=== PATIENT | male | born 1990 | race African-American/Black ===

== ENCOUNTER 2019-01-19 12:11 | Emergency (ER) | payer OTHER ==
[2019-01-19] MEDS ORDERED: NA CHLORIDE 0.9% 1,000 ML ONE ×2 (13:35→14:49)
[2019-01-19 13:59] LABS: Absolute Lymphocytes (CBC) 1.2 K/uL (0.7-4.9); Basophils % 1.6 % (0-1.3); Eosinophils % 1.6 % (0-4.4); Hematocrit 46.6 % (39.6-49.0); Lymphocytes % 19.7 % (15.3-44.8); MPV 9.2 fL (7.6-11.3); Monocytes % 8.3 % (3.3-12.3); RBC Red Blood Cell Count 5.68 M/uL (4.33-5.43)
[2019-01-19 14:06] LABS: Albumin 3.9 g/dL (3.4-5.0); Bilirubin Total 0.4 mg/dL (0.2-1.0); Potassium 4.2 mmol/L (3.5-5.1); Protein, Total 8.4 g/dL (6.4-8.2)
[2019-01-19 14:57] LABS: Urine Blood NEGATIVE (NEG); Urine Glucose NEGATIVE (NEG); Urine Protein NEGATIVE (NEG); Urine Specific Gravity 1.015 (1.005-1.030)
--- NOTE | 2019-01-19 15:43 | ER ---
Nurse's Notes [facility] [place] Name: Satish Player Age: 28 yrs Sex: Male : 1990 Arrival Date: 01/19/2019 Time: 12:15 Bed 23 Private MD: None, None Diagnosis: Dehydration Presentation: 01/19 12:28 Presenting complaint: Patient states: fatigue for months, just got off a shut down at work, also has lower back pain, feels like he's dehydrated, denies vomiting, +diarrhea last night X 4, denies fever, denies urinary symptoms. Transition of care: patient was not received from another setting of care. Onset of symptoms was November 2018. Risk Assessment: Do you want to hurt yourself or someone else? Patient reports no desire to harm self or others. Initial Sepsis Screen: Does the patient meet any 2 criteria? No. Patient's initial sepsis screen is negative. Does the patient have a suspected source of infection? No. Patient's initial sepsis screen is negative. Care prior to arrival: None. 12:28 Method Of Arrival: Ambulatory iw 12:28 Acuity: NORA 4 iw 13:24 Acuity: NORA 3 iw Historical: - Allergies: 12:31 No Known Allergies; iw - Home Meds: 12:31 None [Active]; iw - PMHx: 12:31 None; iw - PSHx: 12:31 None; iw - Immunization history:: Adult Immunizations. - Social history:: Smoking status: Patient/guardian denies using tobacco. - Ebola Screening: : Patient negative for fever greater than or equal to 101.5 degrees Fahrenheit, and additional compatible Ebola Virus Disease symptoms Patient denies exposure to infectious person Patient denies travel to an Ebola-affected area in the 21 days before illness onset No symptoms or risks identified at this time. Screenin:12 Abuse screen: Denies threats or abuse. Denies injuries from another. Nutritional mg2 screening: No deficits noted. Tuberculosis screening: No symptoms or risk factors identified. 13:45 Fall Risk IV access (20 points). mg2 Assessment: 13:44 General: Appears in no apparent distress. comfortable, Behavior is calm, cooperative. mg2 Pain: Denies pain. Neuro: Level of Consciousness is awake, alert, obeys commands, Oriented to person, place, time, situation. Cardiovascular: Capillary refill < 3 seconds Patient's skin is warm and dry. Respiratory: Airway is patent Respiratory effort is even, unlabored, Respiratory pattern is regular, symmetrical. GI: No signs and/or symptoms were reported involving the gastrointestinal system. : No signs and/or symptoms were reported regarding the genitourinary system. EENT: No signs and/or symptoms were reported regarding the EENT system. Derm: Skin is intact, is healthy with good turgor, Skin is pink, warm \T\ dry. normal. Musculoskeletal: Circulation, motion, and sensation intact. Capillary refill < 3 seconds, Reports weakness in whole body. Vital Signs: 12:30 BP 111 / 70; Pulse 83; Resp 16; Temp 97.9; Pulse Ox 98% on R/A; Weight 122.47 kg; iw Height 5 ft. 11 in. (180.34 cm); Pain 0/10; 14:37 BP 126 / 86; Pulse 73; Resp 18; Pulse Ox 98% ; mg2 15:58 BP 122 / 78; Pulse 72; Resp 18; Temp 98; Pulse Ox 100% on R/A; Pain 0/10; mg2 12:30 Body Mass Index 37.66 (122.47 kg, 180.34 cm) iw ED Course: 12:15 Patient arrived in ED. dp 12:16 None, None is Private Physician. dp 12:30 Triage completed. iw 12:30 Arm band placed on. iw 13:00 Ronni Velez PA is PHCP. [facility] 13:00 Blayne Pritchett MD is Attending Physician. [facility] 13:06 Nigel Lopez RN is Primary Nurse. mg2 13:31 Missed attempt(s): 20 gauge in right antecubital area. lt1 13:31 Initial lab(s) drawn, sent to lab. Inserted saline lock: 20 gauge in left antecubital lt1 area, using aseptic technique. 13:46 Patient has correct armband on for positive identification. Pulse ox on. NIBP on. Door mg2 closed. 13:46 No provider procedures requiring assistance completed. mg2 15:58 IV discontinued, intact, bleeding controlled, No redness/swelling at site. Pressure mg2 dressing applied. Administered Medications: 13:40 Drug: NS 0.9% 1000 ml Route: IV; Rate: 1 bolus; Site: left antecubital; mg2 15:57 Follow up: Response: No adverse reaction; IV Status: Completed infusion; IV Intake: mg2 1000ml 14:32 Drug: NS 0.9% 1000 ml Route: IV; Rate: 1 bolus; Site: left antecubital; mg2 15:57 Follow up: Response: No adverse reaction; IV Status: Completed infusion; IV Intake: mg2 1000ml Intake: 15:57 IV: 1000ml; Total: 1000ml. mg2 15:57 IV: 1000ml; Total: 2000ml. mg2 Outcome: 15:42 Discharge ordered by . remy 15:58 Discharged to home ambulatory. mg2 15:58 Condition: stable 15:58 Discharge instructions given to patient, Instructed on discharge instructions, follow up and referral plans. Demonstrated understanding of instructions, follow-up care. 15:58 Patient left the ED. mg2 Signatures: Ronni Velez PA PA jmm Williams, Irene, RN RN iw Nigel Lopez RN RN mg2 Radha Rowland lt1 Je Luz
--- NOTE | 2019-01-19 15:43 | EDPHYS ---
Physician Documentation [facility] [place] Name: Satish Player Age: 28 yrs Sex: Male : 1990 Arrival Date: 01/19/2019 Time: 12:15 Bed 23 Private MD: None, None ED Physician Blayne Pritchett HPI: 01/19 13:16 This 28 yrs old Black Male presents to ER via Ambulatory with complaints of General [facility] Weakness. 13:16 This is a 28 year old male with no known chronic medical conditions that presents to [facility] the ED with complaints of fatigue, weakness. 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 Patient is concerned he may be dehydrated.. Onset: The symptoms/episode began/occurred gradually, 1 week(s) ago. The patient has not experienced similar symptoms in the past. Historical: - Allergies: 12:31 No Known Allergies; iw - Home Meds: 12:31 None [Active]; iw - PMHx: 12:31 None; iw - PSHx: 12:31 None; iw - Immunization history:: Adult Immunizations. - Social history:: Smoking status: Patient/guardian denies using tobacco. - Ebola Screening: : Patient negative for fever greater than or equal to 101.5 degrees Fahrenheit, and additional compatible Ebola Virus Disease symptoms Patient denies exposure to infectious person Patient denies travel to an Ebola-affected area in the 21 days before illness onset No symptoms or risks identified at this time. ROS: 13:16 Cardiovascular: Negative for chest pain, palpitations, and edema, Respiratory: Negative [facility] for shortness of breath, cough, wheezing, and pleuritic chest pain, Abdomen/GI: Negative for abdominal pain, nausea, vomiting, diarrhea, and constipation. 13:16 Constitutional: Positive for fatigue. 13:16 MS/extremity: Positive for pain. 13:16 Neuro: Positive for weakness. 13:16 All other systems are negative. Exam: 13:16 Constitutional: This is a well developed, well nourished patient who is awake, alert, jmm and in no acute distress. Head/Face: atraumatic. Eyes: EOMI, no conjunctival erythema appreciated ENT: Moist Mucus Membranes Neck: Trachea midline, Supple Chest/axilla: Normal chest wall appearance and motion. Cardiovascular: Regular rate and rhythm. No edema appreciated Respiratory: Normal respirations, no respiratory distress appreciated Abdomen/GI: Non distended, soft Back: Normal ROM Skin: General appearance color normal MS/ Extremity: Moves all extremities, no obvious deformities appreciated, no edema noted to the lower extremities Neuro: Awake and alert, normal gait Psych: Behavior is normal, Mood is normal, Patient is cooperative and pleasant Vital Signs: 12:30 BP 111 / 70; Pulse 83; Resp 16; Temp 97.9; Pulse Ox 98% on R/A; Weight 122.47 kg; iw Height 5 ft. 11 in. (180.34 cm); Pain 0/10; 14:37 BP 126 / 86; Pulse 73; Resp 18; Pulse Ox 98% ; mg2 15:58 BP 122 / 78; Pulse 72; Resp 18; Temp 98; Pulse Ox 100% on R/A; Pain 0/10; mg2 12:30 Body Mass Index 37.66 (122.47 kg, 180.34 cm) iw MDM: 13:16 Patient medically screened. [facility] 15:42 Data reviewed: vital signs, nurses notes. Counseling: I had a detailed discussion with [facility] the patient and/or guardian regarding: the historical points, exam findings, and any diagnostic results supporting the discharge/admit diagnosis, lab results, the need for outpatient follow up, to return to the emergency department if symptoms worsen or persist or if there are any questions or concerns that arise at home. 15:42 ED course: Patient states feeling much better in the ED. Patient is alert and non toxic [facility] in appearance. Labs appear consistent with mild dehydration. patient given 2 liters ns in the ED and advised to increased fluid intake. patient was otherwise given strict return precautions. patient understood and agrees with the plan of care. . 01/19 13:16 Order name: CBC with Diff; Complete Time: 14:[address] [facility] 01/19 13:16 Order name: CMP; Complete Time: 14:[address] [facility] 01/19 13:16 Order name: CPK; Complete Time: 14:[address] [facility] 01/19 14:38 Order name: Urine Dipstick--Ancillary (enter results); Complete Time: 15:04 01/19 13:16 Order name: Urine Dipstick-Ancillary (obtain specimen); Complete Time: 14:[address] [facility] Administered Medications: 13:40 Drug: NS 0.9% 1000 ml Route: IV; Rate: 1 bolus; Site: left antecubital; mg2 15:57 Follow up: Response: No adverse reaction; IV Status: Completed infusion; IV Intake: mg2 1000ml 14:32 Drug: NS 0.9% 1000 ml Route: IV; Rate: 1 bolus; Site: left antecubital; mg2 15:57 Follow up: Response: No adverse reaction; IV Status: Completed infusion; IV Intake: mg2 1000ml Disposition: 01/19/19 15:42 Discharged to Home. Impression: Dehydration. - Condition is Stable. - Discharge Instructions: Dehydration, Adult. - Medication Reconciliation Form, Thank You Letter, Antibiotic Education, Prescription Opioid Use form. - Follow up: Private Physician; When: 2 - 3 days; Reason: Recheck today's complaints, Continuance of care, Re-evaluation by your physician. Addendum: 01/21/2019 07:36 Co-signature as Attending Physician, Blayne Pritchett MD. g s Signatures: Dispatcher [employer] EDMS Ronni Velez PA PA jmm Williams, Irene, KATINA RN Blayne Pritchett MD MD Nigel Lopez RN RN mg2 Corrections: (The following items were deleted from the chart) 01/19 15:58 15:42 01/19/2019 15:42 Discharged to Home. Impression: Dehydration. Condition is mg2 Stable. Forms are Medication Reconciliation Form, Thank You Letter, Antibiotic Education, Prescription Opioid Use. Follow up: Private Physician; When: 2 - 3 days; Reason: Recheck today's complaints, Continuance of care, Re-evaluation by your physician. remy
[2019-01-19 16:19] VITALS: BP 122/78; TEMP 98; O2SAT 100
== END 2019-01-19 15:58 | disposition home or self-care (01) ==
LOC: ER 12:11
DX: E86.0 Dehydration (principal)
CPT/HCPCS: 36415; 80053; 81003; 82550; 85025; 96360; 96361; 99284; J7030

== ENCOUNTER 2023-10-28 14:21 | Emergency (ER) | payer OTHER, SELFPAY ==
[2023-10-28] MEDS ORDERED: ONDANSETRON 4 MG/2 ML VIAL ONE (14:53)
[2023-10-28] MEDS ORDERED: KETOROLAC 30 MG/ML INJ ONE (14:53)
[2023-10-28] MEDS ORDERED: NA CHLORIDE 0.9% 1,000 ML ONE ×2 (14:54→15:46)
[2023-10-28 14:55] LABS: Absolute Basophils 0.1 K/uL (0-0.5); Absolute Lymphocytes (CBC) 2.2 K/uL (0.7-4.9); Basophils % 0.6 % (0-1.3); Eosinophils % 0.4 % (0-4.4); Hematocrit 47.1 % (39.6-49.0); Hemoglobin 15.1 g/dL (13.6-17.9); Lymphocytes % 17.5 % (15.3-44.8); MCH 26.5 pg (27.0-35.0); MCHC 32.1 g/dL (32.0-36.0); MCV 82.6 fL (80-100); MPV 8.7 fL (7.6-11.3); Monocytes % 8.1 % (3.3-12.3); Neutrophils % 73.4 % (41.7-73.7); Platelets 243 thou/uL (152-406); RBC Red Blood Cell Count 5.71 M/uL (4.33-5.43); Red Cell Distribution Width 14.5 % (12.1-15.2)
[2023-10-28 15:13] LABS: Albumin 3.9 g/dL (3.4-5.0); Albumin/Globulin Ratio 0.8 (1.1-1.8); Anion Gap 10.6 mEq/L (5.0-15.0); Bilirubin Total 0.5 mg/dL (0.2-1.0); Globulin 4.8 g/dL (2.3-3.5); Magnesium 2.2 mg/dL (1.6-2.4); Potassium 3.6 mEq/L (3.5-5.1); Protein, Total 8.7 g/dL (6.4-8.2)
[2023-10-28 15:15] LABS: SARS-CoV-2 Antigen CONTROL BLUE LINE VIS/BG OK; SARS-CoV-2 Antigen Rapid Res Negative (Negative)
[2023-10-28] MEDS ORDERED: ACETAMINOPHEN 500 MG TAB ONE (15:46)
--- NOTE | 2023-10-28 16:32 | EDPHYS ---
Physician Documentation [facility] [place] Name: Satish Player Age: 33 yrs Sex: Male : 1990 Arrival Date: 10/28/2023 Time: 14:21 Bed DX2 Private MD: ED Physician Farrukh Baeza Historical: - Allergies: 10/27 14:41 No Known Allergies; iw - Home Meds: 14:41 None [Active]; iw - PMHx: 14:41 None; iw - PSHx: 14:41 None; iw - Immunization history:: Adult Immunizations not up to date. - Infectious Disease History:: Denies. - Social history:: Smoking status: Reported history of juuling and/or vaping. Vital Signs: 14:38 BP 129 / 105; Pulse 98; Resp 18; Temp 98.1; Pulse Ox 97% ; Weight 116.12 kg; Height 5 iw ft. 11 in. ; 15:52 Resp 16; Pain 4/10; ll1 16:47 BP 131 / 75; Pulse 68; Resp 16; Pulse Ox 97% on R/A; Pain 0/10; ll1 14:38 Body Mass Index 35.70 (116.12 kg, 180.34 cm) iw 15:52 Pain Scale: Adult ll1 16:47 Pain Scale: Adult ll1 MDM: 14:42 Patient medically screened. rt 10/27 14:42 Order name: SARS RAPID; Complete Time: 15:41 rt 10/27 14:42 Order name: Influenza Screen (a \T\ B); Complete Time: 15:41 rt 10/27 14:42 Order name: CBC with Diff; Complete Time: 15:41 rt 10/27 14:42 Order name: CMP; Complete Time: 15:41 rt 10/27 14:42 Order name: Magnesium; Complete Time: 15:41 rt 10/27 14:42 Order name: CPK; Complete Time: 15:41 rt Administered Medications: 15:02 Drug: NS 0.9% IV 1000 ml IV at 1 bolus Per protocol; 1000 mL bolus Route: IV; Rate: 1 cp4 bolus; Site: left antecubital; 15:51 Follow up: Response: No adverse reaction; IV Status: Completed infusion; IV Intake: ll1 1000ml 15:02 Drug: Ondansetron IVP 4 mg IVP once; over 2 minutes Route: IVP; Site: left antecubital; cp4 15:51 Follow up: Response: No adverse reaction ll1 15:03 Drug: Ketorolac IVP 15 mg IVP once Route: IVP; Site: left antecubital; cp4 15:51 Follow up: Response: No adverse reaction; Pain is decreased; RASS: Alert and Calm (0) ll1 15:52 Drug: Acetaminophen PO 1000 mg PO once {Note: pain 4/10.} Route: PO; ll1 16:47 Follow up: Response: No adverse reaction; Pain is decreased ll1 15:52 Drug: NS 0.9% IV 1000 ml IV at 1 bolus Per protocol; 1000 mL bolus Route: IV; Rate: 1 ll1 bolus; Site: left antecubital; 16:47 Follow up: Response: No adverse reaction; IV Status: Completed infusion; IV Intake: ll1 1000ml Disposition Summary: 10/28/23 16:32 Discharge Ordered Notes: Location: Home rt Problem: new rt Symptoms: have improved rt Condition: Stable rt Diagnosis - Influenza B rt Followup: rt - With: Private Physician - When: 2 - 3 days - Reason: Discharge Instructions: - Discharge Summary Sheet rt - Influenza, Adult rt Forms: - Medication Reconciliation Form rt - Antibiotic Education rt - Prescription Opioid Use rt - Patient Portal Instructions rt - Leadership Thank You Letter rt Prescriptions: - Zofran 4 mg Oral tablet - take 1 tablet ORAL route every 6 hours As needed as needed for nausea; 20 rt tablet; Refills: 0, Product Selection Permitted Signatures: Dispatcher [employer] Lavonne Ballard RN RN Rosie Harrison RN RN ll1 Farrukh Baeza MD MD rt Potter, Christina cp4
--- NOTE | 2023-10-28 16:32 | ER ---
Nurse's Notes [facility] [place] Name: Satish Player Age: 33 yrs Sex: Male : 1990 Arrival Date: 10/28/2023 Time: 14:21 Bed DX2 Private MD: Diagnosis: Influenza B Presentation: 10/27 14:37 Chief complaint: Patient states: cold sweats, not feeling well for a couple days , iw having n/v. Coronavirus screen: Client presents with at least one sign or symptom that may indicate coronavirus-19. Ebola Screen: Patient negative for fever greater than or equal to 101.5 degrees Fahrenheit, and additional compatible Ebola Virus Disease symptoms Patient denies exposure to infectious person. Patient denies travel to an Ebola-affected area in the 21 days before illness onset. No symptoms or risks identified at this time. Initial Sepsis Screen: Does the patient meet any 2 criteria? No. Patient's initial sepsis screen is negative. Does the patient have a suspected source of infection? No. Patient's initial sepsis screen is negative. Risk Assessment: Do you want to hurt yourself or someone else? Patient reports no desire to harm self or others. Onset of symptoms was October 26, 2023. 14:37 Method Of Arrival: Ambulatory iw 14:37 Acuity: NORA 4 iw 14:37 Acuity: NORA 3 Triage Assessment: 16:48 Headache History: Denies prior headaches. General: Appears uncomfortable. Pain: Pain ll1 began 1 day ago. Also complains of nausea, inability to work, sleeplessness. Pain: Denies pain. Historical: - Allergies: 14:41 No Known Allergies; iw - Home Meds: 14:41 None [Active]; iw - PMHx: 14:41 None; iw - PSHx: 14:41 None; iw - Immunization history:: Adult Immunizations not up to date. - Infectious Disease History:: Denies. - Social history:: Smoking status: Reported history of juuling and/or vaping. Screenin:48 [facility] ED Fall Risk Assessment (Adult) History of falling in the last 3 months, ll1 including since admission No falls in past 3 months (0 pts) Confusion or Disorientation No (0 pts) Intoxicated or Sedated No (0 pts) Impaired Gait No (0 pts) Mobility Assist Device Used No (0 pt) Altered Elimination No (0 pt) Score/Fall Risk Level 0 - 2 = Low Risk Maintained a safe environment, Hourly rounding (assess needs \T\ fall precautionary measures) done. Abuse screen: Denies threats or abuse. Nutritional screening: No deficits noted. Tuberculosis screening: No symptoms or risk factors identified. Assessment: 15:52 General: Appears uncomfortable, Behavior is calm, cooperative, appropriate for age. ll1 General: Reports fever for feeling ill for fatigue for. Pain: Complains of pain in head Pain currently is 4 out of 10 on a pain scale. Quality of pain is described as aching. Neuro: Reports headache. 15:52 GI: Reports nausea, vomiting. ll1 16:47 Reassessment: No changes from previously documented assessment. Patient and/or family ll1 updated on plan of care and expected duration. Pain level reassessed. Patient is alert, oriented x 3, equal unlabored respirations, skin warm/dry/pink. Vital Signs: 14:38 BP 129 / 105; Pulse 98; Resp 18; Temp 98.1; Pulse Ox 97% ; Weight 116.12 kg; Height 5 iw ft. 11 in. ; 15:52 Resp 16; Pain 4/10; ll1 16:47 BP 131 / 75; Pulse 68; Resp 16; Pulse Ox 97% on R/A; Pain 0/10; ll1 14:38 Body Mass Index 35.70 (116.12 kg, 180.34 cm) iw 15:52 Pain Scale: Adult ll1 16:47 Pain Scale: Adult ll1 ED Course: 14:21 Patient arrived in ED. rg4 14:26 Farrukh Baeza MD is Attending Physician. rt 14:38 Triage completed. iw 14:41 Arm band placed on. iw 14:50 CPK Sent. bc6 14:50 Magnesium Sent. bc6 14:50 CMP Sent. bc6 14:50 CBC with Diff Sent. bc6 14:50 Influenza Screen (a \T\ B) Sent. bc6 14:50 SARS RAPID Sent. bc6 14:51 Initial lab(s) drawn, by ri, sent to lab. COVID swab sent to lab. Flu and/or RSV swab bc6 sent to lab. Inserted saline lock: 20 gauge in left antecubital area, using aseptic technique. Blood collected. 15:02 Molly Kaiser is Primary Nurse. cp4 16:48 No provider procedures requiring assistance completed. IV discontinued, intact, ll1 bleeding controlled, No redness/swelling at site. Pressure dressing applied. 16:49 Patient has correct armband on for positive identification. Bed in low position. ll1 Provided Education on: n/a. Administered Medications: 15:02 Drug: NS 0.9% IV 1000 ml IV at 1 bolus Per protocol; 1000 mL bolus Route: IV; Rate: 1 cp4 bolus; Site: left antecubital; 15:51 Follow up: Response: No adverse reaction; IV Status: Completed infusion; IV Intake: ll1 1000ml 15:02 Drug: Ondansetron IVP 4 mg IVP once; over 2 minutes Route: IVP; Site: left antecubital; cp4 15:51 Follow up: Response: No adverse reaction 1 15:03 Drug: Ketorolac IVP 15 mg IVP once Route: IVP; Site: left antecubital; cp4 15:51 Follow up: Response: No adverse reaction; Pain is decreased; RASS: Alert and Calm (0) 1 15:52 Drug: Acetaminophen PO 1000 mg PO once {Note: pain 4/10.} Route: PO; ll1 16:47 Follow up: Response: No adverse reaction; Pain is decreased 1 15:52 Drug: NS 0.9% IV 1000 ml IV at 1 bolus Per protocol; 1000 mL bolus Route: IV; Rate: 1 ll1 bolus; Site: left antecubital; 16:47 Follow up: Response: No adverse reaction; IV Status: Completed infusion; IV Intake: ll1 1000ml Medication: 16:49 VIS not applicable for this client. 1 Intake: 15:51 IV: 1000ml; Total: 1000ml. ll1 16:47 IV: 1000ml; Total: 2000ml. 1 Outcome: 16:32 Discharge ordered by MD. rt 16:48 Discharged to home ambulatory, 1 16:48 Condition: stable 16:48 Discharge instructions given to patient, Instructed on discharge instructions, follow up and referral plans. medication usage, Demonstrated understanding of instructions, follow-up care, medications, Prescriptions given X 1, 16:49 Patient left the ED. 1 Signatures: Lavonne Marshall RN RN iw Garcia, Rubi 4 Rosie Harrison RN RN 1 Farrukh Baeza MD MD rt Bridgette Graham bc6 Molly Kaiser cp4 Corrections: (The following items were deleted from the chart) 15:53 15:52 Neuro: Reports headache ll1 ll1
[2023-10-28 18:07] VITALS: BP 131/75; TEMP 98.1; O2SAT 97
== END 2023-10-28 16:49 | disposition home or self-care (01) ==
LOC: ER 14:21
DX: J10.1 Influenza due to other identified influenza virus with other respiratory manifestations (principal); Z11.52 Encounter for screening for COVID-19
CPT/HCPCS: 85025; 36415; 83735; 82550; 80053; 87804 ×2; 87811; J2405; J7030 ×2

== ENCOUNTER 2025-04-22 07:36 | Emergency (ER) | payer OTHER ==
[2025-04-22] MEDS ORDERED: NA CHLORIDE 0.9% 1,000 ML ONE (08:09)
[2025-04-22] MEDS ORDERED: ONDANSETRON 4 MG/2 ML VIAL ONE (08:09)
[2025-04-22 08:38] LABS: Absolute Lymphocytes (CBC) 1.9 K/uL (0.7-4.9); Hematocrit 47.0 % (39.6-49.0); Hemoglobin 15.5 g/dL (13.6-17.9); MCH 26.6 pg (27.0-35.0); MCHC 32.9 g/dL (32.0-36.0); MCV 80.7 fL (80-100); MPV 8.9 fL (7.6-11.3); Nucleated RBC Absolute Count 0.0 (0-0); Nucleated Red Blood Cells % 0.1 % (0-0); RBC Red Blood Cell Count 5.82 M/uL (4.33-5.43); White Blood Count 11.00 thou/uL (4.3-10.9)
[2025-04-22 08:49] LABS: ALT/SGPT 42.0 U/L (16-61); AST/SGOT 19.0 U/L (15-37); Albumin 3.6 g/dL (3.4-5.0); Albumin/Globulin Ratio 0.7 (1.1-1.8); Alkaline Phosphatase 93.0 U/L (45-117); Anion Gap 9.2 mEq/L (5.0-15.0); BUN Blood Urea Nitrogen 12.0 mg/dL (7-18); Globulin 5.0 g/dL (2.3-3.5); Glucose Level 92.0 mg/dL (74-106); Potassium 3.2 mEq/L (3.5-5.1)
[2025-04-22 08:53] LABS: Influenza A Ag Negative; Influenza B Ag Negative; SARS-CoV-2 Antigen Rapid Res Negative (Negative)
[2025-04-22] MEDS ORDERED: POTASSIUM 25 MEQ EFFERV TAB ONE (09:12)
--- NOTE | 2025-04-22 09:28 | ER ---
Nurse's Notes [facility] [place] Name: Satish Player Age: 35 yrs Sex: Male : 1990 Arrival Date: 04/22/2025 Time: 07:36 Bed 7 Private MD: Diagnosis: Nausea with vomiting, unspecified;Weakness;Hypokalemia Presentation: 04/22 07:49 Chief complaint: Patient states: c/o N/V since Wednesday after "eating sisters nasty dirty kb4 rice". Coronavirus screen: At this time, unable to obtain information related to travel outside the [place] Ebola Screen: No symptoms or risks identified at this time. Initial Sepsis Screen: Does the patient meet any 2 criteria? No. Patient's initial sepsis screen is negative. Does the patient have a suspected source of infection? No. Patient's initial sepsis screen is negative. Risk Assessment: Do you want to hurt yourself or someone else? Patient reports no desire to harm self or others. Onset of symptoms was April 20, 2025. 07:49 Method Of Arrival: Ambulatory kb4 07:49 Acuity: NORA 3 kb4 Triage Assessment: 07:51 General: Appears in no apparent distress. comfortable, Behavior is calm, cooperative. kb4 Pain: Denies pain. GI: Reports nausea, vomiting, Wednesday. Historical: - Allergies: 07:51 No Known Allergies; kb4 - Immunization history:: Adult Immunizations up to date. - Infectious Disease History:: Denies. - Social history:: Smoking status: Patient reports the use of cigarette tobacco products, denies chronic smoking, but will smoke occasionally. Screenin:32 [facility] ED Fall Risk Assessment (Adult) History of falling in the last 3 months, kb4 including since admission No falls in past 3 months (0 pts) Confusion or Disorientation No (0 pts) Intoxicated or Sedated No (0 pts) Impaired Gait No (0 pts) Mobility Assist Device Used No (0 pt) Altered Elimination No (0 pt) Score/Fall Risk Level 0 - 2 = Low Risk. Abuse screen: Denies threats or abuse. Denies injuries from another. Nutritional screening: No deficits noted. Tuberculosis screening: No symptoms or risk factors identified. Assessment: 08:15 Reassessment: Patient and/or family updated on plan of care and expected duration. Pain kb4 level reassessed. Patient is alert, oriented x 3, equal unlabored respirations, skin warm/dry/pink. Neuro: Level of Consciousness is awake, alert, obeys commands, Oriented to person, place, time, situation. Cardiovascular: Patient's skin is warm and dry. Respiratory: Airway is patent Respiratory effort is even, unlabored, Respiratory pattern is regular, symmetrical. Derm: Skin is dry, Skin is pink, warm \\T\\ dry. normal. 09:00 Reassessment: Patient and/or family updated on plan of care and expected duration. Pain kb4 level reassessed. Patient is alert, oriented x 3, equal unlabored respirations, skin warm/dry/pink. 10:05 Reassessment: Patient and/or family updated on plan of care and expected duration. Pain kb4 level reassessed. Patient is alert, oriented x 3, equal unlabored respirations, skin warm/dry/pink. laying in bed, feeling better, playing on phone. GI: Abdomen is round non-distended. Vital Signs: 07:51 Temp 97.7; Weight 117.93 kg; Height 5 ft. 11 in. ; kb4 08:31 BP 151 / 109; Pulse 83; Resp 18; Pulse Ox 97% ; kb4 09:56 BP 146 / 83; Pulse 73; Resp 18; Pulse Ox 100% on R/A; kb4 07:51 Body Mass Index 36.26 (117.93 kg, 180.34 cm) kb4 ED Course: 07:40 Patient arrived in ED. cj3 07:41 Solo Briggs MD is Attending Physician. regina 07:49 Armida Woodard, RN is Primary Nurse. kb4 07:50 Inserted saline lock: 20 gauge in right antecubital area, using aseptic technique. kb4 07:51 Triage completed. kb4 07:51 Arm band placed on right wrist. kb4 08:32 Patient has correct armband on for positive identification. kb4 10:08 Provided Education on: d/c instructions . kb4 10:08 No provider procedures requiring assistance completed. kb4 10:19 IV discontinued, intact, bleeding controlled, No redness/swelling at site. Pressure kb4 dressing applied. Administered Medications: 08:28 Drug: NS 0.9% IV 1000 ml IV at 1000 ml once; to be given as a bolus over 60 minutes kb4 Route: IV; Rate: 1000 ml; Site: right antecubital; 08:28 Drug: Ondansetron IVP 8 mg IVP once; over 2 minutes Route: IVP; Site: right antecubital;kb4 10:08 Follow up: Response: No adverse reaction kb4 09:35 Drug: Potassium PO Effervescent Tablet 50 mEq PO once; dissolve in 4 ounces of water or kb4 juice Route: PO; 10:07 Follow up: Response: No adverse reaction kb4 Medication: 10:08 VIS not applicable for this client. kb4 Outcome: 09:27 Discharge ordered by . regina 10:18 Discharged to home ambulatory, kb4 10:18 Condition: good 10:18 Discharge instructions given to patient, Instructed on discharge instructions, follow up and referral plans. medication usage, Demonstrated understanding of instructions, follow-up care, medications, Prescriptions given X 2, 10:19 Patient left the ED. kb4 Signatures: Solo Briggs MD MD cha Bowen, Kayla, RN RN kb4 Talia Senior 3
--- NOTE | 2025-04-22 09:28 | EDPHYS ---
Physician Documentation [facility] [place] Name: Satish Player Age: 35 yrs Sex: Male : 1990 Arrival Date: 04/22/2025 Time: 07:36 Bed 7 Private MD: SHARRI Physician Solo Briggs HPI: 04/22 09:15 This 35 yrs old Black Male presents to ER via Ambulatory with complaints of regina Nausea/Vomiting, Chills, Flu Symptoms. 09:15 The patient presents to the emergency department with nausea, vomiting. Onset: The regina symptoms/episode began/occurred 3 day(s) ago. Possible causes: unknown, sick contacts, by family. The symptoms are aggravated by food , The symptoms are alleviated by nothing. remaining still. Associated signs and symptoms: Pertinent positives: anorexia, nausea, vomiting. Severity of symptoms: At their worst the symptoms were moderate in the emergency department the symptoms are unchanged. The patient has not experienced similar symptoms in the past. Historical: - Allergies: 07:51 No Known Allergies; kb4 - Immunization history:: Adult Immunizations up to date. - Infectious Disease History:: Denies. - Social history:: Smoking status: Patient reports the use of cigarette tobacco products, denies chronic smoking, but will smoke occasionally. ROS: 09:16 Constitutional: Negative for fever, chills, and weight loss, Eyes: Negative for injury, regina pain, redness, and discharge, ENT: Negative for injury, pain, and discharge, Neck: Negative for injury, pain, and swelling, Cardiovascular: Negative for chest pain, palpitations, and edema, Respiratory: Negative for shortness of breath, cough, wheezing, and pleuritic chest pain, Back: Negative for injury and pain, : Negative for injury, bleeding, discharge, and swelling, MS/Extremity: Negative for injury and deformity, Skin: Negative for injury, rash, and discoloration, Neuro: Negative for headache, weakness, numbness, tingling, and seizure, Psych: Negative for depression, anxiety, suicide ideation, homicidal ideation, and hallucinations, Allergy/Immunology: Negative for hives, rash, and allergies, Endocrine: Negative for neck swelling, polydipsia, polyuria, polyphagia, and marked weight changes, Hematologic/Lymphatic: Negative for swollen nodes, abnormal bleeding, and unusual bruising, 09:16 Abdomen/GI: Positive for nausea and vomiting, anorexia, Exam: 09:16 Constitutional: This is a well developed, well nourished patient who is awake, alert, regina and in no acute distress. Head/Face: Normocephalic, atraumatic. Eyes: Pupils equal round and reactive to light, extra-ocular motions intact. Lids and lashes normal. Conjunctiva and sclera are non-icteric and not injected. Cornea within normal limits. Periorbital areas with no swelling, redness, or edema. ENT: Nares patent. No nasal discharge, no septal abnormalities noted. Tympanic membranes are normal and external auditory canals are clear. Oropharynx with no redness, swelling, or masses, exudates, or evidence of obstruction, uvula midline. Mucous membranes moist. Neck: Trachea midline, no thyromegaly or masses palpated, and no cervical lymphadenopathy. Supple, full range of motion without nuchal rigidity, or vertebral point tenderness. No Meningismus. Chest/axilla: Normal chest wall appearance and motion. Nontender with no deformity. No lesions are appreciated. Cardiovascular: Regular rate and rhythm with a normal S1 and S2. No gallops, murmurs, or rubs. Normal PMI, no JVD. No pulse deficits. Respiratory: Lungs have equal breath sounds bilaterally, clear to auscultation and percussion. No rales, rhonchi or wheezes noted. No increased work of breathing, no retractions or nasal flaring. Abdomen/GI: Soft, non-tender, with normal bowel sounds. No distension or tympany. No guarding or rebound. No evidence of tenderness throughout. Back: No spinal tenderness. No costovertebral tenderness. Full range of motion. Male : Normal genitalia with no discharge or lesions. Skin: Warm, dry with normal turgor. Normal color with no rashes, no lesions, and no evidence of cellulitis. MS/ Extremity: Pulses equal, no cyanosis. Neurovascular intact. Full, normal range of motion., bilateral aka Neuro: Awake and alert, GCS 15, oriented to person, place, time, and situation. Cranial nerves II-XII grossly intact. Motor strength 5/5 in all extremities. Sensory grossly intact. Cerebellar exam normal. Normal gait. Psych: Awake, alert, with orientation to person, place and time. Behavior, mood, and affect are within normal limits. Vital Signs: 07:51 Temp 97.7; Weight 117.93 kg; Height 5 ft. 11 in. ; kb4 08:31 BP 151 / 109; Pulse 83; Resp 18; Pulse Ox 97% ; kb4 09:56 BP 146 / 83; Pulse 73; Resp 18; Pulse Ox 100% on R/A; kb4 07:51 Body Mass Index 36.26 (117.93 kg, 180.34 cm) kb4 MDM: 07:41 Medical Screening Exam initiated [facility] 09:20 Differential diagnosis: Nonspecific abd pain, gastritis, cholecystitis, pancreatitis, regina viral gastroenteritis, gastroenteritis. Data reviewed: vital signs, nurses notes, lab test result(s). Consideration of Admission/Observation Escalation of care including admission/observation considered. I considered the following discharge prescriptions or medication management in the emergency department Medications were administered in the Emergency Department. See MAR. Historians other than the Patient: pt well informed. Care significantly affected by the following chronic conditions: Obesity. 04/22 07:48 Order name: CBC with Diff; Complete Time: 09:02 [facility] 04/22 07:48 Order name: CMP; Complete Time: 09:02 [facility] 04/22 07:48 Order name: COVID-19 Ag + Flu A+B Ag; Complete Time: 09:02 [facility] 04/22 07:48 Order name: Group A Streptococcus Rapid; Complete Time: 09:02 [facility] 04/22 08:44 Order name: Throat Culture EDME 04/22 09:04 Order name: PO challenge; Complete Time: 09:06 [facility] Administered Medications: 08:28 Drug: NS 0.9% IV 1000 ml IV at 1000 ml once; to be given as a bolus over 60 minutes kb4 Route: IV; Rate: 1000 ml; Site: right antecubital; 08:28 Drug: Ondansetron IVP 8 mg IVP once; over 2 minutes Route: IVP; Site: right antecubital;kb4 10:08 Follow up: Response: No adverse reaction kb4 09:35 Drug: Potassium PO Effervescent Tablet 50 mEq PO once; dissolve in 4 ounces of water or kb4 juice Route: PO; 10:07 Follow up: Response: No adverse reaction kb4 Disposition Summary: 04/22/25 09:27 Discharge Ordered Notes: Location: Home regina Problem: new regina Symptoms: have improved regina Condition: Stable regina Diagnosis - Nausea with vomiting, unspecified regina - Weakness regina - Hypokalemia regina Followup: regina - With: Private Physician - When: 2 - 3 days - Reason: Recheck today's complaints, Continuance of care, Re-evaluation by your physician Discharge Instructions: - Discharge Summary Sheet regina - Potassium Content of Foods regina - Nausea and Vomiting, Adult regina - Weakness regina - Fatigue regina - Weakness, [id number] regina - Hypokalemia regina Forms: - Medication Reconciliation Form regina - Antibiotic Education regina - Prescription Opioid Use regina - Patient Portal Instructions [facility] - Leadership Thank You Letter [facility] Prescriptions: - ondansetron 4 mg Oral Tablet,disintegrating - take 1 tablet ORAL route every 6 hours as needed for nausea and vomiting; 20 regina tablet; Refills: 0, Product Selection Permitted - promethazine 25 mg Oral tablet - take 1 tablet ORAL route every 6 hours As needed intractable nausea/ vomiting; regina 20 tablet; Refills: 0, Product Selection Permitted Signatures: Dispatcher [employer] Solo Becerril MD MD cha Bowen, Kayla RN RN kb4
[2025-04-22 13:36] VITALS: TEMP 97.7
[2025-04-22 13:38] VITALS: BP 146/83; O2SAT 100
== END 2025-04-22 10:19 | disposition home or self-care (01) ==
LOC: ER 07:36
DX: R11.2 Nausea with vomiting, unspecified (principal); R53.1 Weakness; E87.6 Hypokalemia; F17.210 Nicotine dependence, cigarettes, uncomplicated; Z11.52 Encounter for screening for COVID-19
CPT/HCPCS: 87070; 85025; 36415; 80053; 96374; 99284; 87428; J2405; J7030